=== PATIENT | male | born 1955 | race Caucasian/White ===

== ENCOUNTER 2016-09-07 20:02 | Emergency (ER) | payer OTHER, MEDICARE ==
[~2016-09-07 20:02] MED LIST: ASPIRIN325 MG PO; CYMBALTA60 MG PO; GLUCOPHAGE1000 MG PO; GLUCOTROL10 MG PO; JANUVIA25 MG PO; K-DUR20 MEQ PO; LOPRESSOR100 MG PO; MOBIC15 MG PO; NEURONTIN600 MG PO; NORVASC5 MG PO; PERCOCET 10-321 EACH PO; PLAVIX75 MG PO; PRILOSEC20 M1 PO; REGLAN10 MG PO; ULTRAM50 MG PO; VALSARTAN-HCTZ1 EACH PO; ZOCOR10 MG PO
== END 2016-09-07 23:05 | disposition home or self-care (01) ==
LOC: ER 20:02
DX: S22.41XA Multiple fractures of ribs, right side, initial encounter for closed fracture (principal); I25.2 Old myocardial infarction; E11.9 Type 2 diabetes mellitus without complications; I10 Essential (primary) hypertension; F41.9 Anxiety disorder, unspecified; Z87.891 Personal history of nicotine dependence; W01.10XA Fall on same level from slipping, tripping and stumbling with subsequent striking against unspecified object, initial encounter; Z79.84 Long term (current) use of oral hypoglycemic drugs; Z79.82 Long term (current) use of aspirin; Z79.899 Other long term (current) drug therapy; Z88.1 Allergy status to other antibiotic agents

== ENCOUNTER 2016-09-10 16:36 | Emergency (ER) | payer MEDICARE, OTHER | END 2016-09-10 20:35 | disposition home or self-care (01) | LOC: ER 16:36 | DX: S22.31XA Fracture of one rib, right side, initial encounter for closed fracture (principal); S30.1XXA Contusion of abdominal wall, initial encounter; Z88.2 Allergy status to sulfonamides; Z79.82 Long term (current) use of aspirin; Z79.899 Other long term (current) drug therapy; Z79.84 Long term (current) use of oral hypoglycemic drugs; X58.XXXA Exposure to other specified factors, initial encounter | CPT/HCPCS: 36415 ==